=== PATIENT | male | born 1990 | race Caucasian/White ===

== ENCOUNTER 2021-02-06 21:14 | Emergency (ER) | payer BC ==
[2021-02-06 21:41] VITALS: O2SAT 99
[2021-02-06] MEDS ORDERED: Sodium Chloride 0.9% 1000 ML 1,000 ML IV STA ×3 (21:53→23:50)
[2021-02-06] MEDS ORDERED: Zofran 4 MG/2 ML VIAL IV ONE (21:53)
[2021-02-06] MEDS ORDERED: Zofran 4 MG/2 ML VIAL ONE (21:56)
[2021-02-06] MEDS ORDERED: Sodium Chloride 0.9% 1000 ML 1,000 ML ONE ×2 (21:56→23:53)
[2021-02-06 22:13] LABS: Basophil (Absolute #) 0 (0-0.4); Eosinophil % 2.4 % (0.00-5.0); Eosinophil (Absolute #) 0.35 (0-0.5); Hematocrit 49.5 % (42-50); Hemoglobin 17.2 gm/dl (12.5-18.0); Lymphocyte (Absolute #) 0.54 (1.0-4.6); Lymphocytes % 3.8 % (24.0-44.0); Mean Cell Volume 88.2 fl (78-100); Mean Corpuscular Hemoglobin 30.7 pg (26-32); Mean Corpuscular Hgb Concent. 34.7 g/dl (32-36); Mean Platelet Volume 11.4 fl (7.5-11.0); Monocyte (Absolute #) 0.91 (0.0-1.3); Monocytes % 6.4 % (0.0-12.0); Neutrophil % 87.4 % (36.0-66.0); Platelet Count 285 K/mm3 (150-450); Red Blood Count 5.61 M/mm3 (4.1-5.6); Red Cell Distribution Width 13.1 % (11.5-14.0); White Blood Count 14.3 K/mm3 (4.0-10.5)
--- NOTE | 2021-02-06 22:14 | ERPHSYRPT ---
- History of Present Illness Time Seen by Provider: 02/06/21 21:34 Historian: patient Exam Limitations: no limitations Patient Subjective Stated Complaint: C/O N/V/D. States, "I'm dehydrated." Patient states he has had diarrhea and a fever for 3 days. The fever has been i mproving with time and medication but no improvement noted in the diarrhea. Patient started vomiting today and states, "I can't keep anything down. The moment I swallow anything, it comes right back up." Also c/o chills. Triage Nursing Assessment: Denies SOB but some labored breaths noted upon ambulating to room for assessment. Labored breathing subsided after a short fabienne od of time resting in room. Denies any pain even with abdominal palpation. Bowel sounds present but very hypoactive in left lower quad. Abdomen is soft, round. Physician History: 30 years old healthy male vaccinated against COVID-19 presented in the ER with 3 days history of minimal abdominal discomfort with multiple episodes of loose watery stool with associated high-grade fever with a T-max of 105. He has been using Tylenol/ibuprofen for symptomatic relief. This afternoon he started having nausea and had multiple episodes of vomiting since then nonprojectile, nonbilious without hematemesis and unable to hold anything down. He is complaining of mild dull aching pain in the upper abdomen as well which is improved now. Denies any sick contact. Patient is tachycardic on presentation. Denies any chest pain palpitations, cough or shortness of breath. Timing/Duration: day(s) (3), intermittent, gradual onset, worse Activities at Onset: rest Quality: aching Abdominal Pain Onset Location: generalized abdomen Pain Radiation: no radiation Severity of Pain-Max: mild Severity of Pain-Current: none Modifying Factors: Worsens With: vomiting Associated Symptoms: diarrhea, fever/chills, fatigue, nausea, vomiting Previous symptoms: no prior history Allergies/Adverse Reactions: No Known Drug Allergies Allergy (Unverified 02/06/21 21:43) Hx Tetanus, Diphtheria Vaccination/Date Given: Yes Hx Influenza Vaccination/Date Given: Yes Hx Pneumococcal Vaccination/Date Given: No Immunizations Up to Date: Yes Travel Risk - International Travel Have you traveled outside of the country in past 3 weeks: No - Coronavirus Screening Are you exhibiting any of the following symptoms?: Yes Symptoms: Fever, Vomiting/Diarrhea Close contact with a COVID-19 positive Pt in past 14-21 Days: No - Vaccine Status Have you recieved a Covid-19 vaccination: 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 - Vaccination Dates Dates if Unknown: Unknown; had at work - Review of Systems Constitutional: Fever, Chills, Fatigue, Weakness Eyes: No Symptoms Ears, Nose, & Throat: No Symptoms Respiratory: No Symptoms Cardiac: No Symptoms Abdominal/Gastrointestinal: Abdominal Pain, Nausea, Vomiting, Diarrhea Genitourinary Symptoms: No Symptoms Musculoskeletal: No Symptoms Skin: No Symptoms Neurological: No Symptoms Psychological: No Symptoms Endocrine: No Symptoms Hematologic/Lymphatic: No Symptoms Immunological/Allergic: No Symptoms - Past Medical History Pertinent Past Medical History: No - Past Surgical History Past Surgical History: Yes Neuro Surgical History: No Pertinent History Cardiac: No Pertinent History Respiratory: No Pertinent History Gastrointestinal: Hernia Repair Genitourinary: No Pertinent History Musculoskeletal: No Pertinent History Male Surgical History: No Pertinent History - Social History Smoking Status: Never smoker Drug Use: none Patient Lives Alone: No - Nursing Vital Signs Nursing Vital Signs: Initial Vital Signs Temperature 99.7 F 02/06/21 21:27 Pulse Rate 138 H 02/06/21 21:27 Respiratory Rate 24 02/06/21 21:27 Blood Pressure 117/88 02/06/21 21:27 O2 Sat by Pulse Oximetry 99 02/06/21 21:27 Pain Scale Pain Intensity 0 - Physical Exam General Appearance: no apparent distress, alert Eye Exam: PERRL/EOMI, eyes nml inspection Ears, Nose, Throat Exam: normal ENT inspection, TMs normal, pharyngeal erythema Neck Exam: normal inspection, non-tender, supple, full range of motion Respiratory Exam: normal breath sounds, lungs clear Cardiovascular Exam: normal heart sounds, tachycardia Gastrointestinal/Abdomen Exam: soft, No normal bowel sounds (Hyperactive), No tenderness Back Exam: normal inspection, normal range of motion, No CVA tenderness Extremity Exam: normal inspection, normal range of motion, pelvis stable Neurologic Exam: alert, oriented x 3, cooperative Skin Exam: normal color SpO2 Interpretation: normal SpO2: 99 O2 Delivery: Room Air Ordered Tests: Active Orders 24 hr Category Date Time Status IV Insertion STAT Care 02/06/21 21:53 Completed NPO (ED) STAT Care 02/06/21 21:53 Completed POCT Glucose Check STAT Care 02/06/21 21:55 Completed ABDOMEN AND PELVIS W/0 CONTRAS [CT] Stat Exams 02/06/21 21:54 Taken AMYLASE Stat Lab 02/06/21 22:10 Completed CBC W DIFF Stat Lab 02/06/21 22:10 Completed CMP Stat Lab 02/06/21 22:10 Completed CULTURE,URINE Stat Lab 02/06/21 21:55 Received LIPASE Stat Lab 02/06/21 22:10 Completed Lactic Acid Stat Lab 02/06/21 22:08 Completed POCT GLUCOSE Stat Lab 02/06/21 21:37 Completed UA W/RFX UR CULTURE Stat Lab 02/06/21 21:55 Completed Medication Summary Discontinued Medications Generic Name Dose Route Start Last Admin Trade Name Freq PRN Reason Stop Dose Admin Sodium Chloride 1,000 mls @ 999 mls/hr 02/06/21 21:53 02/06/21 23:11 Sodium Chloride 0.9% 1000 Ml IV 02/06/21 22:53 Infused .Q1H1M STA Infusion Sodium Chloride Confirm 02/06/21 21:56 Sodium Chloride 0.9% 1000 Ml Administered 02/06/21 21:57 Dose 1,000 mls @ ud .ROUTE .STK-MED ONE Sodium Chloride 1,000 mls @ 999 mls/hr 02/06/21 22:57 02/07/21 01:01 Sodium Chloride 0.9% 1000 Ml IV 02/06/21 23:57 Infused .Q1H1M STA Infusion Sodium Chloride 1,000 mls @ 999 mls/hr 02/06/21 23:50 02/07/21 01:29 Sodium Chloride 0.9% 1000 Ml IV 02/07/21 00:50 Infused .Q1H1M STA Infusion Sodium Chloride Confirm 02/06/21 23:53 Sodium Chloride 0.9% 1000 Ml Administered 02/06/21 23:54 Dose 1,000 mls @ ud .ROUTE .STK-MED ONE Sodium Chloride Confirm 02/07/21 00:26 Sodium Chloride 0.9% 1000 Ml Administered 02/07/21 00:27 Dose 1,000 mls @ ud .ROUTE .STK-MED ONE Ondansetron HCl 4 mg 02/06/21 21:53 02/06/21 21:58 Zofran 4 Mg/2 Ml Vial IV 02/06/21 21:54 4 mg STAT ONE Administration Ondansetron HCl Confirm 02/06/21 21:56 Zofran 4 Mg/2 Ml Vial Administered 02/06/21 21:57 Dose 4 mg .ROUTE .[facility] Prochlorperazine Edisylate 10 mg 02/06/21 22:33 02/06/21 22:36 Compazine 10 Mg/2 Ml IV 02/06/21 22:34 10 mg STAT ONE Administration Prochlorperazine Edisylate Confirm 02/06/21 22:33 Compazine 10 Mg/2 Ml Administered 02/06/21 22:34 Dose 10 mg .ROUTE .[facility] Lab/Rad Data: Laboratory Result Diagrams 02/06/21 22:10 02/06/21 22:10 Laboratory Results 02/06/21 02/06/21 02/06/21 Range/Units 22:10 22:10 22:08 WBC 14.3 H (4.0-10.5) K/mm3 RBC 5.61 H (4.1-5.6) M/mm3 Hgb 17.2 (12.5-18.0) gm/dl Hct 49.5 (42-50) % MCV 88.2 (78-100) fl MCH 30.7 (26-32) pg MCHC 34.7 (32-36) g/dl RDW 13.1 (11.5-14.0) % Plt Count 285 (150-450) K/mm3 MPV 11.4 H (7.5-11.0) fl Gran % 87.4 H (36.0-66.0) % Eos # (Auto) 0.35 (0-0.5) Absolute Lymphs (auto) 0.54 L (1.0-4.6) Absolute Monos (auto) 0.91 (0.0-1.3) Lymphocytes % 3.8 L (24.0-44.0) % Monocytes % 6.4 (0.0-12.0) % Eosinophils % 2.4 (0.00-5.0) % Basophils % 0.0 (0.0-0.4) % Absolute Granulocytes 12.50 H (1.4-6.9) Basophils # 0 (0-0.4) Sodium 139 (137-145) mmol/L Potassium 3.8 (3.5-5.1) mmol/L Chloride 101 (98-107) mmol/L Carbon Dioxide 19 L (22-30) mmol/L Anion Gap 21.9 H (5-15) MEQ/L BUN 15 (9-20) mg/dL Creatinine 1.26 H (0.66-1.25) mg/dL Estimated GFR > 60.0 ML/MIN Glucose 153 H (74-106) mg/dL POC Glucometer (74 to 106) mg/dL Lactic Acid 1.8 (0.4-2.0) Calcium 9.7 (8.4-10.2) mg/dL Total Bilirubin 0.50 (0.2-1.3) mg/dL AST 24 (17-59) U/L ALT 31 (0-50) U/L Alkaline Phosphatase 74 (38-126) U/L Serum Total Protein 8.3 H (6.3-8.2) g/dL Albumin 4.8 (3.5-5.0) g/dL Amylase 52 (30-110) U/L Lipase 55 (23-300) U/L Urine Color (YELLOW) Urine Appearance (CLEAR) Urine pH (5-6) Ur Specific [place] (1.005-1.025) Urine Protein (Negative) Urine Ketones (NEGATIVE) Urine Blood (0-5) Jack/ul Urine Nitrite (NEGATIVE) Urine Bilirubin (NEGATIVE) Urine Urobilinogen (0-1) mg/dL Ur Leukocyte Esterase (NEGATIVE) Urine WBC (Auto) (0-5) /HPF Urine RBC (Auto) (0-2) /HPF U Hyaline Cast (Auto) (0-2) /LPF U Epithel Cells (Auto) (FEW) /HPF Urine Bacteria (Auto) (NEGATIVE) /HPF Urine Mucus (Auto) (NEGATIVE) /HPF Urine Culture Reflexed (NO) Urine Glucose (NEGATIVE) mg/dL 02/06/21 02/06/21 Range/Units 21:55 21:37 WBC (4.0-10.5) K/mm3 RBC (4.1-5.6) M/mm3 Hgb (12.5-18.0) gm/dl Hct (42-50) % MCV (78-100) fl MCH (26-32) pg MCHC (32-36) g/dl RDW (11.5-14.0) % Plt Count (150-450) K/mm3 MPV (7.5-11.0) fl Gran % (36.0-66.0) % Eos # (Auto) (0-0.5) Absolute Lymphs (auto) (1.0-4.6) Absolute Monos (auto) (0.0-1.3) Lymphocytes % (24.0-44.0) % Monocytes % (0.0-12.0) % Eosinophils % (0.00-5.0) % Basophils % (0.0-0.4) % Absolute Granulocytes (1.4-6.9) Basophils # (0-0.4) Sodium (137-145) mmol/L Potassium (3.5-5.1) mmol/L Chloride (98-107) mmol/L Carbon Dioxide (22-30) mmol/L Anion Gap (5-15) MEQ/L BUN (9-20) mg/dL Creatinine (0.66-1.25) mg/dL Estimated GFR ML/MIN Glucose (74-106) mg/dL POC Glucometer 133 H (74 to 106) mg/dL Lactic Acid (0.4-2.0) Calcium (8.4-10.2) mg/dL Total Bilirubin (0.2-1.3) mg/dL AST (17-59) U/L ALT (0-50) U/L Alkaline Phosphatase (38-126) U/L Serum Total Protein (6.3-8.2) g/dL Albumin (3.5-5.0) g/dL Amylase (30-110) U/L Lipase (23-300) U/L Urine Color JOHN (YELLOW) Urine Appearance SLIGHTLY CLOUDY (CLEAR) Urine pH 5.0 (5-6) Ur Specific [place] 1.025 (1.005-1.025) Urine Protein 100 (Negative) Urine Ketones TRACE (NEGATIVE) Urine Blood SMALL (0-5) Jack/ul Urine Nitrite NEGATIVE (NEGATIVE) Urine Bilirubin NEGATIVE (NEGATIVE) Urine Urobilinogen NEGATIVE (0-1) mg/dL Ur Leukocyte Esterase NEGATIVE (NEGATIVE) Urine WBC (Auto) 3-5 (0-5) /HPF Urine RBC (Auto) 6-10 (0-2) /HPF U Hyaline Cast (Auto) 6-10 (0-2) /LPF U Epithel Cells (Auto) RARE (FEW) /HPF Urine Bacteria (Auto) NONE SEEN (NEGATIVE) /HPF Urine Mucus (Auto) MODERATE (NEGATIVE) /HPF Urine Culture Reflexed YES (NO) Urine Glucose NEGATIVE (NEGATIVE) mg/dL - Progress Progress: improved, re-examined Progress Note: 02/07/21 01:40 Patient was tachycardic with heart rate in 130s on presentation, given fluid boluses x2, on reevaluation feeling much better. He is given antiemetics and was able to tolerate oral very well while in the ER. Patient is afebrile and here. White count is 14, chemistries consistent with dehydration. Obtain CT abdomen pelvis without contrast which is essentially nonspecific suggesting gastroenteritis. Patient is offered to have Covid testing but he refused. He is feeling better and wants to go home. He is given Zofran to go home and discuss signs symptoms of worsening needing return to ER which he seems understanding. Counseled pt/family regarding: lab results, diagnosis, need for follow-up, rad results - Departure Departure Disposition: Home Clinical Impression: Gastroenteritis, Dehydration Condition: Stable Critical Care Time: No Referrals: SHANE ONEIL MD [Primary Care Provider] - Follow Up with PCP/3 days Instructions: Viral Gastroenteritis, Adult (DC) Additional Instructions: Drink plenty of fluids. Take Tylenol/Zofran as needed. Follow-up with your primary care physician for reevaluation and 2 days. Return to ER for worsening/intractable vomiting/diarrhea or inability to keep anything down. Prescriptions: Ondansetron ODT 4 MG [Zofran Odt 4 mg] 4 mg PO Q6H PRN PRN #10 tablet PRN Reason: Vomiting
[2021-02-06 22:24] LABS: Appearance SLIGHTLY CLOUDY (CLEAR); Bilirubin NEGATIVE (NEGATIVE); Blood SMALL Ery/ul (0-5); Epithelial Cells RARE /HPF (FEW); Glucose NEGATIVE (NEGATIVE); Ketones TRACE (NEGATIVE); Leukocyte Esterase NEGATIVE (NEGATIVE); Mucus MODERATE /HPF (NEGATIVE); Nitrite NEGATIVE (NEGATIVE); Protein,Urine Dip 100 (Negative); Specific Gravity 1.025 (1.005-1.025); Urobilinogen NEGATIVE mg/dL (0-1)
[2021-02-06 22:25] LABS: Bacteria NONE SEEN /HPF (NEGATIVE)
[2021-02-06] MEDS ORDERED: Compazine 10 MG/2 ML ONE (22:33)
[2021-02-06] MEDS ORDERED: Compazine 10 MG/2 ML IV ONE (22:33)
[2021-02-06 22:35] LABS: ALBUMIN 4.8 g/dL (3.5-5.0); ALKALINE PHOSPHATASE 74 U/L (38-126); AMYLASE 52 U/L (30-110); ANION GAP 21.9 MEQ/L (5-15); BLOOD UREA NITROGEN 15 mg/dL (9-20); CHLORIDE 101 mmol/L (98-107); Calcium 9.7 mg/dL (8.4-10.2); Carbon Dioxide 19 mmol/L (22-30); Creatinine 1 1.26 mg/dL (0.66-1.25); EST GLOMERULAR FILTRATION RATE > 60.0 ML/MIN; Glucose 153 mg/dL (74-106); LIPASE 55 U/L (23-300); Potassium 3.8 mmol/L (3.5-5.1); SGOT/AST 24 U/L (17-59); SGPT/ALT 31 U/L (0-50); SODIUM 139 mmol/L (137-145); Total Protein 8.3 g/dL (6.3-8.2)
[2021-02-07] MEDS ORDERED: Sodium Chloride 0.9% 1000 ML 1,000 ML ONE (00:26)
[2021-02-07 01:33] VITALS: BP 131/79; PULSE 110
--- NOTE | 2021-02-07 07:25 | XRAY ---
Indication: Abdomen tenderness. Fever, diarrhea, nausea, and vomiting. Multiple contiguous axial images obtained through the abdomen and pelvis without contrast. Comparison: None Lung bases are clear. Heart not enlarged. Noncontrasted stomach and bowel loops appear nonobstructed. Normal air-filled appendix. Colon is mildly fluid distended throughout favoring diarrhea. No free fluid/air. Gallbladder mildly distended without gallstones or biliary distention. Remaining liver, gallbladder, pancreas, spleen, adrenal glands, kidneys, ureters, bladder, and aorta appear unremarkable for noncontrast exam. Osseous structures intact. Impression: 1. Mild fluid distended colon throughout favoring diarrhea. 2. Mild distended gallbladder. Gallbladder sonogram may yield further information if clinically warranted. 3. Remaining CT abdomen/pelvis without contrast exam is negative. Comment: Preliminary interpretation made by [facility]. No critical discrepancy.
== END 2021-02-07 01:48 | disposition home or self-care (01) ==
LOC: ED 21:14
DX: K52.9 Noninfective gastroenteritis and colitis, unspecified (principal); E86.0 Dehydration
CPT/HCPCS: 36000; 36415; 74176; 80053; 81001; 82150; 82947; 83605; 83690; 85025; 87086; 96360; 96361; 96374; 96375; 99285; J2405